=== PATIENT | female | born 2000 | race Caucasian/White ===

== ENCOUNTER 2021-11-18 23:42 | Emergency (ER) | payer BC ==
[~2021-11-18] VITALS: Ht 160 cm; Wt 60.8 kg
[2021-11-18 23:49] VITALS: BP_SYST 110
--- NOTE | 2021-11-18 23:55 | NUR ---
PT HERE FOR LT FLANK PAIN WITH NAUSEA. PT STATED THAT SHE WOKE UP ON HER SLEEP WITH PAIN, DENIES TRAUMA. DENIES ABD PAIN, DENIES V/D. PMH:DENIES PT AAOX4, NO SOB NOTED AND NOT IN ANY DISTRESS AT THIS TIME.
[2021-11-19] MEDS ORDERED: KETOROLAC TROMETHAMINE 60 MG/2 ML VIAL IM ONE (00:45)
--- NOTE | 2021-11-19 01:00 | NUR ---
PATIENT IS THE HALLWAY. A&O X 4 COMPALINING ABOUT THE PAIN THE HER LOWER ABD. SHE IS COOPERATIVE.
[2021-11-19 01:13] LABS: BILIRUBIN,URINE NEGATIVE (NEGATIVE); BLOOD, URINE NEGATIVE (NEGATIVE); CLARITY/URINE CLEAR (CLEAR); COLOR,URINE YELLOW (YELLOW); GLUCOSE,URINE NEGATIVE (NEGATIVE); KETONES,URINE NEGATIVE (NEGATIVE); LEUKOCYTE ESTERASE ,URINE TRACE (NEGATIVE); NITRITE, URINE NEGATIVE (NEGATIVE); PROTEIN URINE NEGATIVE (NEGATIVE); UROBILINOGEN,URINE 0.2 (0.2-1.0)
[2021-11-19 01:21] LABS: BACTERIA,URINE RARE /HPF (None Seen); RBC,URINE NONE SEEN /HPF (0-3); WBC,URINE 0-3 /HPF (0-3)
[2021-11-19 01:25] LABS: BASOPHILS # (AUTO) 0.1 K/uL (0.0-0.2); BASOPHILS % (AUTO) 0.8 % (0.0-2.0); EOSINOPHILS # (AUTO) 0.3 K/uL (0.0-0.4); HEMATOCRIT 39.2 % (36-48); HEMOGLOBIN 13.5 g/dL (12.0-16.0); LYMPHOCYTES % (AUTO) 26.2 % (20.5-51.5); MEAN CORPUSCULAR HEMOGLOBIN 31 pg (27-31); MEAN CORPUSCULAR HGB CONC 34 % (32-36); MEAN CORPUSCULAR VOLUME 90 fL (79.0-98.0); MONOCYTES # (AUTO) 0.5 K/uL (0.0-1.0); MONOCYTES % (AUTO) 6.7 % (1.7-9.3); NEUTROPHILS # (AUTO) 4.8 K/uL (1.8-7.7); NEUTROPHILS % (AUTO) 62.3 % (40.0-70.0); PLATELET COUNT (AUTO) 213 K/uL (130-430); RED BLOOD CELL COUNT(AUTO) 4.37 MIL/uL (4.2-6.2); RED CELL DISTRIBUTION WIDTH 13.7 % (9.0-15.0); WHITE BLOOD COUNT (AUTO) 7.7 K/uL (4.5-11.0)
[2021-11-19 01:58] LABS: CREATININE 0.86 mg/dL (0.55-1.30); POTASSIUM 3.9 mmol/L (3.5-5.1)
[2021-11-19 02:10] LABS: ALBUMIN 3.7 g/dL (3.4-4.8); TOTAL BILIRUBIN 0.2 mg/dL (0.0-1.0)
[2021-11-19] MEDS ORDERED: HYDROcodone/ACETAMIN 5-325 MG TAB (NORCO/ VICODIN) PO ONE (03:00)
--- NOTE | 2021-11-19 03:20 | NUR ---
PATIENT IS TRANFERED TO BED 1. VSS.
[2021-11-19] MEDS ORDERED: HYDR-3917 PO (04:10)
[2021-11-19] MEDS ORDERED: IBUP-1969 PO (04:10)
[2021-11-19 04:18] VITALS: BP_SYST 141
== END 2021-11-19 04:15 | disposition home or self-care (01) ==
LOC: SED 23:42
DX: R10.32 Left lower quadrant pain (principal); R11.0 Nausea; R42 Dizziness and giddiness; Z79.899 Other long term (current) drug therapy
CPT/HCPCS: 99284; 80053; 81000; 84702; 83690; 85025; 36415; 76856; 81025; 96372; J1885